=== PATIENT | male | born 1995 | race Caucasian/White ===

== ENCOUNTER 2019-08-10 16:34 | Emergency (ER) | payer MEDICAID ==
[~2019-08-10] VITALS: Ht 182.9 cm; Wt 113.0 kg
[2019-08-10] MEDS ORDERED: PROP20TA18 PO (16:45)
[2019-08-10] MEDS ORDERED: TRAZ-220 PO (16:45)
[2019-08-10] MEDS ORDERED: OLAN5TAB40 PO (16:45)
[2019-08-10] MEDS ORDERED: SERT50TA12 PO (16:45)
[2019-08-10 18:35] LABS: BASOPHILS % (AUTO) 0.5 % (0.0-2.0); EOSINOPHILS % (AUTO) 1.5 % (1.0-6.0); HEMATOCRIT 39.3 % (41-53); HEMOGLOBIN 13.3 g/dL (13.5-17.5); LYMPHOCYTES # (AUTO) 1.3 K/uL (1.0-4.8); LYMPHOCYTES % (AUTO) 14.5 % (22.0-44.0); MEAN CORPUSCULAR HEMOGLOBIN 30.9 pg (26.0-34.0); MEAN CORPUSCULAR HGB CONC 33.9 G/dL (31.0-37.0); MEAN CORPUSCULAR VOLUME 91 fL (80-100); MONOCYTES % (AUTO) 10.5 % (2.0-9.0); NEUTROPHILS # (AUTO) 6.7 K/uL (1.8-7.7); PLATELET COUNT (AUTO) 284 K/uL (150-450); RED BLOOD CELL COUNT(AUTO) 4.33 MIL/uL (4.50-5.90); RED CELL DISTRIBUTION WIDTH 13.1 % (11.5-14.5)
[2019-08-10] MEDS ORDERED: CLINDAMYCIN HCL 150 MG CAPSULE PO ONE (19:00)
[2019-08-10] MEDS ORDERED: IBUPROFEN 600 MG TABLET PO ONE (19:00)
[2019-08-10 19:59] VITALS: BP 131/60
== END 2019-08-10 19:59 | disposition home or self-care (01) ==
LOC: EMS 16:36
DX: L03.221 Cellulitis of neck (principal); F41.9 Anxiety disorder, unspecified; F32.9 Major depressive disorder, single episode, unspecified; F17.210 Nicotine dependence, cigarettes, uncomplicated; F11.90 Opioid use, unspecified, uncomplicated
CPT/HCPCS: 70490

== ENCOUNTER 2019-08-12 10:17 | Emergency (ER) | payer MEDICAID ==
[~2019-08-12] VITALS: Ht 193 cm; Wt 113.6 kg
[~2019-08-12 10:17] MED LIST: OLAN5TAB40 PO; PROP20TA18 PO; SERT50TA12 PO; TRAZ-220 PO
[2019-08-12] MEDS ORDERED: IBUP-2070 PO (10:29)
[2019-08-12] MEDS ORDERED: CLIN150C9 PO (10:29)
[2019-08-12] MEDS ORDERED: VANCOMYCIN HCL 1 GM/D5% WATER 200 ML IV ONE (11:45)
[2019-08-12 11:58] LABS: HEMATOCRIT 36.9 % (41-53); HEMOGLOBIN 12.5 g/dL (13.5-17.5); LYMPHOCYTES % (AUTO) 17.5 % (22.0-44.0); MEAN CORPUSCULAR HEMOGLOBIN 30.5 pg (26.0-34.0); MEAN CORPUSCULAR HGB CONC 33.7 G/dL (31.0-37.0); MEAN CORPUSCULAR VOLUME 90 fL (80-100); MONOCYTES % (AUTO) 12.2 % (2.0-9.0); NEUTROPHILS % (AUTO) 68.3 % (40.0-70.0); PLATELET COUNT (AUTO) 253 K/uL (150-450); RED BLOOD CELL COUNT(AUTO) 4.08 MIL/uL (4.50-5.90); RED CELL DISTRIBUTION WIDTH 13.4 % (11.5-14.5)
[2019-08-12 11:59] LABS: BASOPHILS % (AUTO) 0.4 % (0.0-2.0); EOSINOPHILS % (AUTO) 1.6 % (1.0-6.0); LYMPHOCYTES # (AUTO) 2.1 K/uL (1.0-4.8); MONOCYTES # (AUTO) 1.4 K/uL (0.1-1.0); NEUTROPHILS # (AUTO) 8.1 K/uL (1.8-7.7)
[2019-08-12 12:13] LABS: ANION GAP 6 mmol/L (8-16); CALCIUM, TOTAL 8.5 mg/dL (8.8-10.5); CARBON DIOXIDE 30 mmol/L (22-29); CHLORIDE 96 mmol/L (98-107); CREATININE 0.83 mg/dL (0.60-1.30); GLOMERULAR FILTR. RATE CALC > 60 mL/min (>60); GLUCOSE,RANDOM 94 mg/dL (70-110); POTASSIUM 4.4 mmol/L (3.5-5.1); SODIUM SERUM 132 mmol/L (136-145); UREA NITROGEN, BLOOD 10 mg/dL (7-18)
[2019-08-12] MEDS ORDERED: IOVERSOL 350 MG/ML 150 ML VIAL ONE (12:35)
[2019-08-12] MEDS ORDERED: KETOROLAC TROMETHAMINE 30 MG/ML VIAL IVP ONE (21:00)
[2019-08-12 21:58] VITALS: BP 128/53
== END 2019-08-12 23:26 | disposition short-term general hospital (02) ==
LOC: EMS 10:20
DX: I88.9 Nonspecific lymphadenitis, unspecified (principal); L03.221 Cellulitis of neck; F10.20 Alcohol dependence, uncomplicated; F41.9 Anxiety disorder, unspecified; F32.9 Major depressive disorder, single episode, unspecified; F17.210 Nicotine dependence, cigarettes, uncomplicated; F11.90 Opioid use, unspecified, uncomplicated; F15.90 Other stimulant use, unspecified, uncomplicated; Z79.899 Other long term (current) drug therapy
CPT/HCPCS: 36415; 70491; 80048; 85025; 87040; 96365; 96366; 96375; 99285; J1885; J3370; Q9967